=== PATIENT | male | born 1945 | race Caucasian/White ===

== ENCOUNTER 2017-03-14 15:53 | Inpatient (IN) | payer OTHER ==
[~2017-03-14] VITALS: Ht 170.2 cm; Wt 84.0 kg
[2017-03-14] MEDS ORDERED: ACET-1256 PO (16:21)
[2017-03-14] MEDS ORDERED: LSN20 PO (16:21)
[2017-03-14] MEDS ORDERED: IBUP-1050 PO (16:21)
[2017-03-14] MEDS ORDERED: HYDR25TA5 PO (16:21)
[2017-03-14] MEDS ORDERED: MELA3TAB PO (16:21)
[2017-03-14] MEDS ORDERED: LOVA20TA4 PO (16:21)
[2017-03-14] MEDS ORDERED: ASPI81TA28 PO (16:21)
--- NOTE | 2017-03-14 16:32 | DIAGNOSTIC IMAGING REPORT ---
SINGLE VIEW CHEST CLINICAL HISTORY: Generalized weakness. FINDINGS: An AP, portable, upright chest radiograph is obtained. No prior studies are available for comparison at the time of dictation. The examination is significantly degraded by portable technique, apical lordotic positioning, and patient rotation. The cardiomediastinal silhouette is unremarkable. There is atherosclerotic calcification of the thoracic ureter. Nonspecific interstitial thickening is noted. No airspace consolidation, large pleural effusion, or pneumothorax is seen. The skeletal structures are osteopenic. The bony thorax is grossly intact. Calcific tendinopathy is noted in the right shoulder. IMPRESSION: No acute cardiopulmonary abnormality. Electronically signed by: Guicho Lundy M.D. 03/14/2017 4:31 PM Dictated Date/Time: 03/14/2017 4:29 PM
[2017-03-14 16:51] LABS: BASO % 0.5 %; BASO ABS # 0.06 K/uL (0-0.2); COMPLETE YES; EOS % 0.8 %; HEMATOCRIT 37.8 % (42-52); IG% 0.5 %; LYMPH % 14.6 %; LYMPH ABS # 1.63 K/uL (1.2-3.4); MEAN CELL VOLUME 87.1 fL (80-100); MEAN CORPUSCULAR HEMOGLOBIN 30.2 pg (25-34); MEAN CORPUSCULAR HGB CONC 34.7 g/dl (32-36); MEAN PLATELET VOLUME 10.9 fL (7.4-10.4); MONO % 13.2 %; NEUT % 70.4 %; PLATELET COUNT 221 K/uL (130-400); RED BLOOD COUNT 4.34 M/uL (4.7-6.1); WHITE BLOOD COUNT 11.14 K/uL (4.8-10.8)
[2017-03-14 17:01] LABS: PARTIAL THROMBOPLASTIN RATIO 1.2; PROTHROMBIN TIME (PATIENT) 10.7 SECONDS (9.0-12.0)
[2017-03-14 17:05] LABS: URINE APPEARANCE CLEAR (CLEAR); URINE BILIRUBIN NEG (NEG); URINE COLOR DK YELLOW; URINE EPITHELIAL CELL AUTO >30 /lpf (0-5); URINE NITRITE NEG (NEG); URINE PH 5.5 (4.5-7.5); URINE SPECIFIC GRAVITY 1.025 (1.000-1.030); UROBILINOGEN NEG (NEG)
[2017-03-14 17:06] LABS: ALT/SGPT 64 U/L (12-78); AST/SGOT 28 U/L (15-37); BLOOD UREA NITROGEN 21 mg/dl (7-18); BUN/CREATININE RATIO 17.3 (10-20); CALCIUM 8.1 mg/dl (8.5-10.1); CARBON DIOXIDE 28 mmol/L (21-32); CHLORIDE 101 mmol/L (98-107); GLUCOSE 101 mg/dl (70-99); MAGNESIUM 2.2 mg/dl (1.8-2.4); POTASSIUM 3.9 mmol/L (3.5-5.1); SODIUM 137 mmol/L (136-145)
[2017-03-14 17:13] LABS: MANUAL MICROSCOPIC REQUIRED? NO; REVIEW REQ? YES
[2017-03-14 17:14] LABS: ALKALINE PHOSPHATASE 137 U/L (45-117); THYROID STIMULATING HORMONE 0.726 uIu/ml (0.300-4.500)
[2017-03-14] MEDS ORDERED: CEFTRIAXONE SOD INJ 1 GM ADDVIAL IV STA (18:14)
[2017-03-14] MEDS ORDERED: SODIUM CHLORIDE 0.9% 1000ML 1,000 ML IV STA (18:21)
[2017-03-14] MEDS ORDERED: ACETAMINOPHEN 500 MG TAB PO STA (18:21)
[2017-03-14] MEDS ORDERED: IBUPROFEN 600 MG TAB PO STA (19:36)
[2017-03-14] MEDS ORDERED: VANCOMYCIN INJ 1,700 MG in SODIUM CHLORIDE 0.9% 500ML 500 ML IV STA (19:36)
[2017-03-14] MEDS ORDERED: SODIUM CHLORIDE 0.9% 1000ML 2,000 ML IV STA (19:36)
[2017-03-14 21:50] VITALS: BP 126/75; PULSE 83; TEMP 36.8; O2SAT 93; Ht 170.2 cm; Wt 84.0 kg
[2017-03-14] MEDS: HYDROmorphone INJ 1 MG/ML SYR IV PRN (22:31)
[2017-03-14] MEDS: ENOXAPARIN 40 MG/0.4 ML SYR SQ SCH (23:06)
[2017-03-14 23:08] VITALS: BP 138/78; PULSE 87; TEMP 36.9; O2SAT 96
[2017-03-15] VITALS (7 sets, daily range): BP systolic 125–152; BP diastolic 68–79; PULSE 62–78; TEMP 37.1–38.6; O2SAT 92–95
--- NOTE | 2017-03-15 01:25 | EMERGENCY ROOM VISIT NOTE ---
History Report prepared by Marj: Lima Rose Under the Supervision of: Dr. Yovany Crespo M.D. First contact with patient: 16:06 Chief Complaint: FEVER Stated Complaint: FEVER / [facility] History of Present Illness The patient is a 71 year old male who presents to the Emergency Room with complaints of a constant fever beginning earlier today. The patient fell four days ago, which resulted in a left femoral neck fracture. He had surgery at [place] two days ago to repair this fracture. He was discharged to [facility] this morning. When he arrived his temperature was 103.3. The patient was given 500mg of Tylenol at 1:40pm. His fever persisted and he was sent to the ED for further evaluation. He also notes that he has been unable to void since his surgery. He has been getting catheterized regularly, but was not catheterized today. He reports some suprapubic discomfort. The patient rates his pain as a 5/ 10 in severity. Pt denies LOC, chills, diaphoresis, visual changes, neck pain, chest pain, breathing difficulties, nausea, vomiting back pain, melena, hematochezia, numbness, weakness, lymphadenopathy, rash, or other complaints. Source of History: patient Onset: today Position: head Symptom Intensity: 5/10 Quality: other (fever) Timing: constant Modifying Factors (Relieving): tylenol Associated Symptoms: + abdominal pain, + urinary symptoms (unable to void) Review of Systems See HPI for pertinent positives and negatives. A total of ten systems were reviewed and were otherwise negative. Past Medical & Surgical Medical Problems: (1) Femoral neck fracture (2) Sepsis Surgical Problems: (1) History of open reduction and internal fixation (ORIF) procedure Family History No pertinent history stated. Social History Smoking Status: Unknown if Ever Smoked Marital Status: Housing Status: lives with significant other Current/Historical Medications Scheduled Acetaminophen (Tylenol), 500 MG PO QAM Aspirin (Aspirin Ec), 81 MG PO QAM Hydrochlorothiazide (Hydrochlorothiazide), 2 MG PO DAILY Ibuprofen (Advil), 200 MG PO QPM Lisinopril (Lisinopril), 20 MG PO QAM Lovastatin (Mevacor), 20 MG PO QPM Melatonin (Melatonin), 3 MG PO HS Allergies Coded Allergies: No Known Allergies (Unverified , 03/14/17) Physical Exam Vital Signs Date Time Temp Pulse Resp B/P (MAP) Pulse Ox O2 Delivery O2 Flow Rate FiO2 03/14/17 20:42 37.3 83 17 128/67 95 Nasal Cannula 2.0 03/14/17 19:18 39.1 97 19 149/77 95 Nasal Cannula 2.0 03/14/17 18:06 38.0 92 20 145/80 93 Nasal Cannula 03/14/17 17:01 94 Nasal Cannula 2.0 03/14/17 16:59 89 20 128/72 89 Room Air 03/14/17 16:04 90 03/14/17 16:00 37.7 91 20 106/68 90 Room Air Physical Exam GENERAL: Awake, alert, uncomfortable-appearing, in no distress HENT: Normocephalic, atraumatic. Oropharynx unremarkable. EYES: Normal conjunctiva. Sclera non-icteric. NECK: Supple. No nuchal rigidity. FROM. No JVD. RESPIRATORY: Clear to auscultation. CARDIAC: Borderline tachycardic rate, normal rhythm. Extremities warm and well perfused. Pulses equal. ABDOMEN: Soft, non-distended. Minimal suprapubic discomfort. No rebound or guarding. No masses. RECTAL: Deferred. MUSCULOSKELETAL: Chest examination reveals no tenderness. The back is symmetrical on inspection without obvious abnormality. There is no CVA tenderness to palpation. No joint edema. LOWER EXTREMITIES: Surgical incision left proximal thigh, clean, dry, and intact. No redness. Calves are equal size bilaterally and non-tender. No edema. No discoloration. NEURO: Normal sensorium. No sensory or motor deficits noted. SKIN: No rash or jaundice noted. Medical Decision & Procedures ER Provider Diagnostic Interpretation: Chest x-ray. Findings: A chest x-ray was performed and revealed no pneumothorax , effusion, infiltrate, pulmonary edema, free air under the diaphragm, or wide mediastinum. Radiology results as stated below per my review and radiologist interpretation: SINGLE VIEW CHEST CLINICAL HISTORY: Generalized weakness. FINDINGS: An AP, portable, upright chest radiograph is obtained. No prior studies are available for comparison at the time of dictation. The examination is significantly degraded by portable technique, apical lordotic positioning, and patient rotation. The cardiomediastinal silhouette is unremarkable. There is atherosclerotic calcification of the thoracic ureter. Nonspecific interstitial thickening is noted. No airspace consolidation, large pleural effusion, or pneumothorax is seen. The skeletal structures are osteopenic. The bony thorax is grossly intact. Calcific tendinopathy is noted in the right shoulder. IMPRESSION: No acute cardiopulmonary abnormality. Electronically signed by: Guicho Lundy M.D. 03/14/2017 4:31 PM Dictated Date/Time: 03/14/2017 4:29 PM Laboratory Results 03/14/17 16:30 Red Blood Count 4.34, Mean Corpuscular Volume 87.1, Mean Corpuscular Hemoglobin 30.2, Mean Corpuscular Hemoglobin Concent 34.7, Mean Platelet Volume 10.9, Neutrophils (%) (Auto) 70.4, Lymphocytes (%) (Auto) 14.6, Monocytes (%) (Auto) 13.2, Eosinophils (%) (Auto) 0.8, Basophils (%) (Auto) 0.5, Neutrophils # (Auto ) 7.83, Lymphocytes # (Auto) 1.63, Monocytes # (Auto) 1.47, Eosinophils # (Auto ) 0.09, Basophils # (Auto) 0.06 03/14/17 16:30 Test 03/14/17 16:30 03/14/17 16:35 03/14/17 16:42 White Blood Count 11.14 K/uL (4.8-10.8) Red Blood Count 4.34 M/uL (4.7-6.1) Hemoglobin 13.1 g/dL (14.0-18.0) Hematocrit 37.8 % (42-52) Mean Corpuscular Volume 87.1 fL (80-100) Mean Corpuscular Hemoglobin 30.2 pg (25-34) Mean Corpuscular Hemoglobin Concent 34.7 g/dl (32-36) Platelet Count 221 K/uL (130-400) Mean Platelet Volume 10.9 fL (7.4-10.4) Neutrophils (%) (Auto) 70.4 % Lymphocytes (%) (Auto) 14.6 % Monocytes (%) (Auto) 13.2 % Eosinophils (%) (Auto) 0.8 % Basophils (%) (Auto) 0.5 % Neutrophils # (Auto) 7.83 K/uL (1.4-6.5) Lymphocytes # (Auto) 1.63 K/uL (1.2-3.4) Monocytes # (Auto) 1.47 K/uL (0.11-0.59) Eosinophils # (Auto) 0.09 K/uL (0-0.5) Basophils # (Auto) 0.06 K/uL (0-0.2) RDW Standard Deviation 42.8 fL (36.4-46.3) RDW Coefficient of Variation 13.3 % (11.5-14.5) Immature Granulocyte % (Auto) 0.5 % Immature Granulocyte # (Auto) 0.06 K/uL (0.00-0.02) Prothrombin Time 10.7 SECONDS (9.0-12.0) Prothromb Time International Ratio 1.0 (0.9-1.1) Activated Partial Thromboplast Time 30.8 SECONDS (21.0-31.0) Partial Thromboplastin Ratio 1.2 Anion Gap 8.0 mmol/L (3-11) Est Creatinine Clear Calc Drug Dose 60.2 ml/min Estimated GFR () 71.1 Estimated GFR (Non- 61.3 BUN/Creatinine Ratio 17.3 (10-20) Calcium Level 8.1 mg/dl (8.5-10.1) Magnesium Level 2.2 mg/dl (1.8-2.4) Total Bilirubin 1.0 mg/dl (0.2-1) Direct Bilirubin 0.4 mg/dl (0-0.2) Aspartate Amino Transf (AST/SGOT) 28 U/L (15-37) Alanine Aminotransferase (ALT/SGPT) 64 U/L (12-78) Alkaline Phosphatase 137 U/L (45-117) Total Creatine Kinase 149 U/L (39-308) Creatine Kinase MB < 0.5 ng/ml (0.5-3.6) Creatine Kinase MB Ratio (0-3.0) Troponin I < 0.015 ng/ml (0-0.045) Total Protein 7.2 gm/dl (6.4-8.2) Albumin 2.7 gm/dl (3.4-5.0) Lipase 105 U/L (73-393) Thyroid Stimulating Hormone (TSH) 0.726 uIu/ml (0.300-4.500) Urine Color DK YELLOW Urine Appearance CLEAR (CLEAR) Urine pH 5.5 (4.5-7.5) Urine Specific [place] 1.025 (1.000-1.030) Urine Protein 1+ (NEG) Urine Glucose (UA) NEG (NEG) Urine Ketones NEG (NEG) Urine Occult Blood 1+ (NEG) Urine Nitrite NEG (NEG) Urine Bilirubin NEG (NEG) Urine Urobilinogen NEG (NEG) Urine Leukocyte Esterase SMALL (NEG) Urine WBC (Auto) 10-30 /hpf (0-5) Urine RBC (Auto) 10-30 /hpf (0-4) Urine Hyaline Casts (Auto) /lpf (0-5) Urine Epithelial Cells (Auto) >30 /lpf (0-5) Urine Bacteria (Auto) NEG (NEG) Urine Renal Epithelial Cells /lpf (0-5) Urine Pathogenic Casts /lpf (0) Bedside Lactic Acid Venous 0.92 mmol/L (0.90-1.70) Laboratory results reviewed by me. Medications Administered Medications (Trade) Dose Ordered Sig/Olinda Route Start Time Stop Time Status Last Admin Dose Admin Ceftriaxone Sodium (Rocephin Inj) 1 gm NOW STAT IV 03/14/17 18:14 03/14/17 18:15 DC 03/14/17 18:28 1 GM Acetaminophen (Tylenol Tab) 1,000 mg NOW STAT PO 03/14/17 18:21 03/14/17 18:23 DC 03/14/17 18:30 1,000 MG Sodium Chloride 1,000 ml @ 999 mls/hr Q1H1M STAT IV 03/14/17 18:21 03/14/17 19:21 DC 03/14/17 18:27 999 MLS/HR Ibuprofen (Motrin Tab) 600 mg NOW STAT PO 03/14/17 19:36 03/14/17 19:38 DC 03/14/17 20:42 600 MG Vancomycin HCl 1700 mg/Sodium Chloride 534 ml @ 200 mls/hr ONE STAT IV 03/14/17 19:36 03/14/17 22:16 DC 03/14/17 20:42 200 MLS/HR Sodium Chloride 2,000 ml @ 999 mls/hr Q2H1M STAT IV 03/14/17 19:36 03/14/17 21:36 DC 03/14/17 20:42 999 MLS/HR ECG Indication: other Rate (beats per minute): 92 Rhythm: normal sinus Findings: no acute ischemic change, no ectopy ED Course 1623: The patient was evaluated in room C6. A complete history and physical exam was performed. 1813: Rocephin 1 gm IV 1820: NSS 1000 ml @ 999 mls/hr IV, Tylenol tab 1000 mg PO 1833: I reevaluated the patient. He is feeling slightly chilled and just received his medications. 1935: NSS 2000 ml @ 999 mls/hr IV, Vancomycin HCl 1700 mg/Sodium chloride 534 ml @ 200 mls/hr IV, ibuprofen 600 mg PO 1938: I reassessed the patient at this time. He is feeling warm and flushed. I discussed the results and treatment plan with the patient. I answered all pertaining questions that he had. He expressed understanding and verbalized agreement. 1946: I spoke with Dr. Vickers. We discussed the patient's results and treatment plan. [facility]. Medical Decision Medication Reconciliation: I attest that I have personally reviewed the patient' s current medication list Blood pressure screening: Patient was found to have normal blood pressure on screening and does not require emergent follow-up. Triage Nursing notes reviewed. The patient's presentation and history were concerning for fever and recent surgery. The patient was evaluated. Clinically he was too relatively well. He was having issues with urinary retention. Burciaga catheter was placed and urine was obtained. His CBC showed a mild leukocytosis. Chemistry panel was unremarkable. Chest x-ray did not reveal any evidence of pneumonia. The patient was hydrated. He is given IV Rocephin. The patient then had an increase in fever and felt chills. He was given Tylenol. The patient was observed. He began to feel worse and his temperature increased over 39C. He was given a dose of Motrin, additional 2 L of IV fluids, and IV vancomycin for additional gram-positive coverage. Given his recent history of multiple catheterizations I'm concerned about a urinary source for his infection. His urinalysis did show a significant amount of white blood cells and this was a catheter specimen. The patient will need to be monitored in the hospital as she is exhibiting signs of SIRS and is at high risk for sepsis. Consultation was made with internal medicine. The patient and family were informed. The patient was evaluated by medicine in the emergency from for further management. Consults Time Called: 1945 Consulting Physician: Dr. Vickers Returned Call: [address] Vickers. We discussed the patient's results and treatment plan. The patient will be evaluated by the [facility] for further management. Impression Primary Impression: Fever Additional Impressions: SIRS (systemic inflammatory response syndrome) UTI (urinary tract infection) Scribe Attestation The scribe's documentation has been prepared under my direction and personally reviewed by me in its entirety. I confirm that the note above accurately reflects all work, treatment, procedures, and medical decision making performed by me. Departure Information Dispostion Being Evaluated By Hospitalist Referrals [facility] (PCP) Patient Instructions My [facility] Problem Qualifiers Primary Impression: Fever Fever type: unspecified Qualified Codes: R50.9 - Fever, unspecified Additional Impressions: UTI (urinary tract infection) Urinary tract infection type: site unspecified Hematuria presence: with hematuria Qualified Codes: N39.0 - Urinary tract infection, site not specified ; R31.9 - Hematuria, unspecified
--- NOTE | 2017-03-15 01:31 | HISTORY & PHYSICAL EXAMINATION ---
DATE OF ADMISSION: 03/14/2017 PRIMARY CARE DOCTOR: Dr. Regalado CHIEF COMPLAINT: Fever. HISTORY OF PRESENT ILLNESS: History obtained from patient and records. Medical history significant for CVA, LA as per records (px unaware of dx), hypertension, hyperlipidemia, BPH, ongoing tobacco abuse (chewing). Patient confined at [facility] from March 11 till this AM for L femoral fracture after a fall while looking for worms. PX underwent surgery. No unusual pain. Postop urinary retention required intermittent straight catheterization, postop low grade fevers as per records. Cultures negative, antibiotics later stopped. Px discharged today to [facility]. At [facility], noted to be febrile and urinary retention noted. No cp, no sob, no cough sx, No abd pain/diarrhea. No headaches. No unusual L hip pain. MEDICAL HISTORY: As above. Seen by [facility], May 2015 for urinary retention after vertebral fracture. Patient subsequently weaned off Flomax. SURGERIES: Cystoscopy for kidney stones, orthopedic procedures.cataract surgery. HOME MEDICATIONS: Include acetaminophen, HCTZ, ibuprofen, melatonin, aspirin, lisinopril, losartan. ALLERGIES : NKA FAMILY HISTORY: Family history of heart disease. PERSONAL AND SOCIAL HISTORY: Ongoing tobacco abuse (chewing). No chronic intake of alcoholic beverages. REVIEW OF SYSTEMS: As per HPI. All other ROS negative. PHYSICAL EXAMINATION: VITAL SIGNS: Blood pressure was noted to be 106/98, pulse rate 92, respiratory rate 20, temperature 39.1, sats 98 on room air. GENERAL: Noted to be slightly anxious, uncomfortable, no respiratory distress. SKIN: Pallor. HEENT: Pale palpebral conjunctivae. Dry mucosa. NECK: No JVD. supple CHEST: Clear to auscultation. HEART: Regular rate and rhythm. ABDOMEN: Soft. EXTREMITIES: No edema. no tenderness NEUROLOGIC: No gross focality. LABORATORY DATA: Hemoglobin was noted to be 13.1, white cell count 11 platelets 221. Sodium 140 chloride 101, CO2 28, creatinine 1.2, glucose 101, lactic acid was 0.92. UA, small WBC est CXR no acute pathology ASSESSMENT: 1. Sepsis secondary to complicated urinary tract infection history of benign prostatic hypertrophy (Hx pansensitive E. coli as per outpx records) 2. recent hx traumatic L femoral fx sp surgery 3. cerebrovascular accident as per records 4. hypertension, stable. 5. postop anemia, PLAN: GMF Follow cultures. IV ceftriaxone for now. Urology consult RE urinary retention DVT prophylaxis. Lovenox subQ. Full code. MTDD
[2017-03-15] MEDS: HYDROmorphone INJ 1 MG/ML SYR IV PRN (04:57)
[2017-03-15 07:14] LABS: BASO % 0.5 %; BASO ABS # 0.05 K/uL (0-0.2); COMPLETE YES; EOS % 1.2 %; HEMATOCRIT 36.1 % (42-52); IG% 0.4 %; LYMPH % 15.9 %; MEAN CORPUSCULAR HEMOGLOBIN 29.8 pg (25-34); MEAN CORPUSCULAR HGB CONC 33.8 g/dl (32-36); MEAN PLATELET VOLUME 10.4 fL (7.4-10.4); MONO % 14.5 %; NEUT % 67.5 %; PLATELET COUNT 189 K/uL (130-400); WHITE BLOOD COUNT 9.45 K/uL (4.8-10.8)
[2017-03-15 07:42] LABS: BUN/CREATININE RATIO 19.9 (10-20); CALCIUM 7.5 mg/dl (8.5-10.1); CREATININE 0.96 mg/dl (0.60-1.40)
[2017-03-15] MEDS: ACETAMINOPHEN 325 MG TAB PO PRN ×2 (08:00→15:43)
[2017-03-15] MEDS: ONDANSETRON INJ 2 MG/ML 2 ML VIAL IV PRN ×2 (08:00→16:56)
[2017-03-15] MEDS ORDERED: PNEUMOCOCCAL ADMINISTRATION CHARGE ONE (09:00)
[2017-03-15] MEDS ORDERED: PNEUMOCOCCAL POLYSACCHARIDES 25 MCG/0.5 ML VIAL/SYR IM. ONE (09:00)
[2017-03-15] MEDS: LISINOPRIL 20 MG TAB PO SCH (09:50)
[2017-03-15] MEDS: ASPIRIN 81 MG ECTAB PO SCH (09:50)
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
[2017-03-15] MEDS: CEFTRIAXONE SOD INJ 1 GM in DEXTROSE 5% ADD-VANTAGE 50ML 50 ML IV SCH (17:54)
--- NOTE | 2017-03-15 20:27 | Progress Note ---
Medicine Progress Note Date & Time of Visit: Mar 15, 2017 at 10:40 . Subjective Repair of left hip fracture performed at [facility] last week. Transferred to [facility] for rehabilitation. Evaluated in ED for fever and admitted last night. Still febrile this morning. No cough or shortness of breath. No chest pain. No nausea, vomiting, diarrhea. Has Burciaga catheter. No drainage from left hip. . Objective Last 8 Hrs Date Time Temp Pulse Resp B/P (MAP) Pulse Ox O2 Delivery O2 Flow Rate FiO2 03/15/17 16:54 38.5 03/15/17 15:31 Room Air 03/15/17 15:05 38.6 78 16 130/69 (89) 92 Room Air Physical Exam: General- sitting in chair, no distress Eyes- anicteric Lungs- clear to auscultation Heart- RRR Abdomen- + BS, soft, nontender - Burciaga catheter draining clear urine Extremities- no pretibial edema or calf tenderness; left hip incision without erythema or drainage Neuro- alert, oriented . Laboratory Results: Last 24 Hours Test 03/15/17 06:28 White Blood Count 9.45 K/uL Red Blood Count 4.10 M/uL Hemoglobin 12.2 g/dL Hematocrit 36.1 % Mean Corpuscular Volume 88.0 fL Mean Corpuscular Hemoglobin 29.8 pg Mean Corpuscular Hemoglobin Concent 33.8 g/dl Platelet Count 189 K/uL Mean Platelet Volume 10.4 fL Neutrophils (%) (Auto) 67.5 % Lymphocytes (%) (Auto) 15.9 % Monocytes (%) (Auto) 14.5 % Eosinophils (%) (Auto) 1.2 % Basophils (%) (Auto) 0.5 % Neutrophils # (Auto) 6.38 K/uL Lymphocytes # (Auto) 1.50 K/uL Monocytes # (Auto) 1.37 K/uL Eosinophils # (Auto) 0.11 K/uL Basophils # (Auto) 0.05 K/uL RDW Standard Deviation 44.0 fL RDW Coefficient of Variation 13.6 % Immature Granulocyte % (Auto) 0.4 % Immature Granulocyte # (Auto) 0.04 K/uL Sodium Level 141 mmol/L Potassium Level 4.0 mmol/L Chloride Level 107 mmol/L Carbon Dioxide Level 26 mmol/L Anion Gap 8.0 mmol/L Blood Urea Nitrogen 19 mg/dl Creatinine 0.96 mg/dl Est Creatinine Clear Calc Drug Dose 75.3 ml/min Estimated GFR () 93.1 Estimated GFR (Non- 80.3 BUN/Creatinine Ratio 19.9 Random Glucose 87 mg/dl Calcium Level 7.5 mg/dl Hepatitis C Antibody Screen NEG Assessment & Plan FEVER Source uncertain. No infiltrates on chest x-ray. No apparent wound infection. Having problems with urinary retention- ? prostatitis. Urology consulted. Continue IV ceftriaxone. CORONARY ARTERY DISEASE No anginal symptoms. Continue aspirin. HYPERTENSION Continue hydrochlorothiazide, lisinopril, losartan. CEREBROVASCULAR DISEASE Old stroke with residual mild left upper extremity weakness. LEFT HIP FRACTURE / REPAIR Follow-up with Orthopedics and [place]. VTE PROPHYLAXIS Moderate to high risk. SQ enoxaparin. DISPOSITION Expected return to [facility] for inpatient rehabilitation. . Current Inpatient Medications: Current Inpatient Medications Medications (Trade) Dose Ordered Sig/Olinda Route Start Time Stop Time Status Last Admin Dose Admin Enoxaparin Sodium (Lovenox Inj) 40 mg Q24H SQ 03/14/17 22:00 04/13/17 21:59 03/14/17 23:06 40 MG Acetaminophen (Tylenol Tab) 650 mg Q4H PRN PO 03/14/17 21:30 04/13/17 21:29 03/15/17 15:43 650 MG Ceftriaxone Sodium 1 gm/ Dextrose 50 ml @ 100 mls/hr Q24H IV 03/15/17 18:00 03/18/17 18:29 03/15/17 17:54 100 MLS/HR Aspirin (Ecotrin Tab) 81 mg QAM PO 03/15/17 09:00 04/14/17 08:59 03/15/17 09:50 81 MG Lisinopril (Zestril Tab) 20 mg QAM PO 03/15/17 09:00 04/14/17 08:59 03/15/17 09:50 20 MG Lovastatin (Mevacor Tab) 20 mg QPM PO 03/15/17 21:00 04/14/17 20:59 Ondansetron HCl (Zofran Inj) 4 mg Q6H PRN IV 03/14/17 21:30 04/13/17 21:29 03/15/17 16:56 4 MG Tramadol HCl (Ultram Tab) 25 mg Q6H PRN PO 03/14/17 21:30 04/13/17 21:29 Hydromorphone HCl (Dilaudid Inj) 0.5 mg Q3H PRN IV 03/14/17 21:30 03/28/17 21:29 03/15/17 04:57 0.5 MG Tamsulosin HCl (Flomax Cap) 0.4 mg HS PO 03/15/17 21:00 04/14/17 20:59
[2017-03-15] MEDS ORDERED: LORAZEPAM 0.5 MG TAB PO ONE (20:45)
[2017-03-15] MEDS: ENOXAPARIN 40 MG/0.4 ML SYR SQ SCH (21:20)
[2017-03-15] MEDS: TAMSULOSIN HCL 0.4 MG CAP PO SCH (21:20)
[2017-03-15] MEDS: LOVASTATIN 20 MG TAB PO SCH (21:20)
[2017-03-16 03:19] VITALS: TEMP 37.2
[2017-03-16 07:12] VITALS: BP 129/70; PULSE 61; TEMP 37.1; O2SAT 97
[2017-03-16] MEDS: TRAMADOL HCL 50 MG TAB PO PRN ×2 (07:31→22:19)
[2017-03-16] MEDS: ASPIRIN 81 MG ECTAB PO SCH (08:30)
[2017-03-16] MEDS: LISINOPRIL 20 MG TAB PO SCH (08:30)
[2017-03-16 15:00] VITALS: BP 113/67; PULSE 63; TEMP 37; O2SAT 95
[2017-03-16] MEDS: CEFTRIAXONE SOD INJ 1 GM in DEXTROSE 5% ADD-VANTAGE 50ML 50 ML IV SCH (17:45)
[2017-03-16 19:15] VITALS: TEMP 37.4
--- NOTE | 2017-03-16 20:47 | DIAGNOSTIC IMAGING REPORT ---
CHEST 2 VIEWS ROUTINE CLINICAL HISTORY: fever, cough fever COMPARISON STUDY: 03/14/2017 FINDINGS: Mild emphysematous change. Mild stable cardiomegaly. Lungs are considered clear. Trace pleural fluid left base laterally. IMPRESSION: Trace pleural fluid left base. Mild to moderate emphysematous change. Electronically signed by: Brian Hernandez M.D. 03/16/2017 8:46 PM Dictated Date/Time: 03/16/2017 8:45 PM
--- NOTE | 2017-03-16 21:07 | DIAGNOSTIC IMAGING REPORT ---
SINUSES MIN 3 VIEWS ROUTINE CLINICAL HISTORY: fever, cough COMPARISON STUDY: None FINDINGS: All major sinuses are considered clear. There are no air-fluid levels. Osseous structures appear intact. IMPRESSION: All major sinuses are clear Electronically signed by: Brian Hernandez M.D. 03/16/2017 9:06 PM Dictated Date/Time: 03/16/2017 9:05 PM
[2017-03-16] MEDS: ENOXAPARIN 40 MG/0.4 ML SYR SQ SCH (21:15)
[2017-03-16] MEDS: TAMSULOSIN HCL 0.4 MG CAP PO SCH (21:15)
[2017-03-16] MEDS: LOVASTATIN 20 MG TAB PO SCH (21:15)
[2017-03-16 23:05] VITALS: BP 117/71; PULSE 60; TEMP 36.6; O2SAT 94
--- NOTE | 2017-03-16 23:09 | Progress Note ---
Medicine Progress Note Date & Time of Visit: Mar 16, 2017 at 16:00 . Subjective Last fever was yesterday afternoon around 1700. Occasional cough productive of green sputum. No shortness of breath. No chest pain. No nausea, vomiting, diarrhea. Objective Last 8 Hrs Date Time Temp Pulse Resp B/P (MAP) Pulse Ox O2 Delivery O2 Flow Rate FiO2 03/16/17 19:30 Room Air 03/16/17 19:15 37.4 Physical Exam: General- lying in bed, no distress Lungs- clear to auscultation Heart- RRR Abdomen- + BS, soft, nontender - Burciaga catheter draining clear urine Extremities- no pretibial edema or calf tenderness; left hip incision bandaged Neuro- alert, oriented . Assessment & Plan FEVER Source uncertain. No infiltrates on admission chest x-ray. No apparent wound infection. Having problems with urinary retention- ? prostatitis. Productive cough today- check follow-up chest x-ray with PA and lateral views as well as sinus films. Continue IV ceftriaxone. URINARY RETENTION Postoperative urinary retention. Seen in consultation by Urology. Prescribed tamsulosin. Burciaga catheter for a few more days followed by voiding trial recommended. CORONARY ARTERY DISEASE No anginal symptoms. Continue aspirin. HYPERTENSION Continue hydrochlorothiazide, lisinopril, losartan. CEREBROVASCULAR DISEASE Old stroke with residual mild left upper extremity weakness. LEFT HIP FRACTURE / REPAIR Follow-up with Orthopedics in [place]. VTE PROPHYLAXIS Moderate to high risk. SQ enoxaparin. DISPOSITION Expected return to [facility] for inpatient rehabilitation. . Consultants: Urology . Current Inpatient Medications: Current Inpatient Medications Medications (Trade) Dose Ordered Sig/[facility] Route Start Time Stop Time Status Last Admin Dose Admin Enoxaparin Sodium (Lovenox Inj) 40 mg Q24H SQ 03/14/17 22:00 04/13/17 21:59 03/16/17 21:15 40 MG Acetaminophen (Tylenol Tab) 650 mg Q4H PRN PO 03/14/17 21:30 04/13/17 21:29 03/15/17 15:43 650 MG Ceftriaxone Sodium 1 gm/ Dextrose 50 ml @ 100 mls/hr Q24H IV 03/15/17 18:00 03/18/17 18:29 03/16/17 17:45 100 MLS/HR Aspirin (Ecotrin Tab) 81 mg QAM PO 03/15/17 09:00 04/14/17 08:59 03/16/17 08:30 81 MG Lisinopril (Zestril Tab) 20 mg QAM PO 03/15/17 09:00 04/14/17 08:59 03/16/17 08:30 20 MG Lovastatin (Mevacor Tab) 20 mg QPM PO 03/15/17 21:00 04/14/17 20:59 03/16/17 21:15 20 MG Ondansetron HCl (Zofran Inj) 4 mg Q6H PRN IV 03/14/17 21:30 04/13/17 21:29 03/15/17 16:56 4 MG Tramadol HCl (Ultram Tab) 25 mg Q6H PRN PO 03/14/17 21:30 04/13/17 21:29 03/16/17 22:19 25 MG Hydromorphone HCl (Dilaudid Inj) 0.5 mg Q3H PRN IV 03/14/17 21:30 03/28/17 21:29 03/15/17 04:57 0.5 MG Tamsulosin HCl (Flomax Cap) 0.4 mg HS PO 03/15/17 21:00 04/14/17 20:59 03/16/17 21:15 0.4 MG
[2017-03-17 07:54] VITALS: BP 142/88; PULSE 60; TEMP 33.7; TEMP 37.3; O2SAT 96
[2017-03-17] MEDS: ASPIRIN 81 MG ECTAB PO SCH (08:33)
[2017-03-17] MEDS: ACETAMINOPHEN 325 MG TAB PO PRN (08:34)
[2017-03-17] MEDS: LISINOPRIL 20 MG TAB PO SCH (08:34)
[2017-03-17 09:53] LABS: HEMATOCRIT 37.1 % (42-52); MEAN CELL VOLUME 86.3 fL (80-100); MEAN CORPUSCULAR HEMOGLOBIN 28.8 pg (25-34); MEAN CORPUSCULAR HGB CONC 33.4 g/dl (32-36); MEAN PLATELET VOLUME 11.3 fL (7.4-10.4); PLATELET COUNT 214 K/uL (130-400); WHITE BLOOD COUNT 7.32 K/uL (4.8-10.8)
[2017-03-17 10:24] LABS: BUN/CREATININE RATIO 20.6 (10-20); CREATININE 0.97 mg/dl (0.60-1.40); POTASSIUM 3.6 mmol/L (3.5-5.1)
[2017-03-17 10:26] LABS: CALCIUM 8.2 mg/dl (8.5-10.1)
--- NOTE | 2017-03-17 14:01 | Progress Note ---
Medicine Progress Note Date & Time of Visit: Mar 17, 2017 at 13:45. Subjective Pt was seen and examined Lying in bed with no distress Pt said that is still having pain in Left LE He said that he feels like the pain med does not last longer denies any chest pain, palpitation, dizziness and sob Objective Last 8 Hrs Date Time Temp Pulse Resp B/P (MAP) Pulse Ox O2 Delivery O2 Flow Rate FiO2 03/17/17 08:56 Room Air 96 03/17/17 08:00 Room Air 03/17/17 07:54 37.3 60 14 142/88 (106) 96 Room Air Physical Exam: General- No acute distress Head- atraumatic Eyes- PERRL, EOMI ENT- oropharynx clear Neck- supple, no JVD Lungs- clear to auscultation Heart- regular rhythm Abdomen- normal bowel sounds, soft Extremities- no calf tenderness Neuro- alert, oriented x 3; PERRL, EOMI; no facial palsy Skin- warm & dry Laboratory Results: Last 24 Hours Test 03/17/17 09:27 White Blood Count 7.32 K/uL Red Blood Count 4.30 M/uL Hemoglobin 12.4 g/dL Hematocrit 37.1 % Mean Corpuscular Volume 86.3 fL Mean Corpuscular Hemoglobin 28.8 pg Mean Corpuscular Hemoglobin Concent 33.4 g/dl RDW Standard Deviation 42.7 fL RDW Coefficient of Variation 13.5 % Platelet Count 214 K/uL Mean Platelet Volume 11.3 fL Sodium Level 140 mmol/L Potassium Level 3.6 mmol/L Chloride Level 106 mmol/L Carbon Dioxide Level 24 mmol/L Anion Gap 10.0 mmol/L Blood Urea Nitrogen 20 mg/dl Creatinine 0.97 mg/dl Est Creatinine Clear Calc Drug Dose 74.5 ml/min Estimated GFR () 91.9 Estimated GFR (Non- 79.3 BUN/Creatinine Ratio 20.6 Random Glucose 140 mg/dl Calcium Level 8.2 mg/dl Assessment & Plan FEVER Etiology Unknown No infiltrates on admission chest x-ray. No apparent wound infection. Blood cx and urine cx negative Received rocephin has been afebrile for about 48hrs URINARY RETENTION Postoperative urinary retention.. Urology on board Recommended to keep Burciaga catheter for a few more days followed by voiding trial on Urine cx negative continue Flomax CORONARY ARTERY DISEASE Asymptomatic Continue aspirin. HYPERTENSION Continue hydrochlorothiazide, lisinopril, losartan. BP stable CEREBROVASCULAR DISEASE Old stroke with residual mild left upper extremity weakness. Continue aspirin LEFT HIP FRACTURE / REPAIR Follow-up with Orthopedics in [place]. Continue PT VTE PROPHYLAXIS Moderate to high risk. SQ enoxaparin. DIS[facility]ITION [facility] Consultants: Urology . Current Inpatient Medications: Current Inpatient Medications Medications (Trade) Dose Ordered Sig/Olinda Route Start Time Stop Time Status Last Admin Dose Admin Enoxaparin Sodium (Lovenox Inj) 40 mg Q24H SQ 03/14/17 22:00 04/13/17 21:59 03/16/17 21:15 40 MG Acetaminophen (Tylenol Tab) 650 mg Q4H PRN PO 03/14/17 21:30 04/13/17 21:29 03/17/17 08:34 650 MG Ceftriaxone Sodium 1 gm/ Dextrose 50 ml @ 100 mls/hr Q24H IV 03/15/17 18:00 03/18/17 18:29 03/16/17 17:45 100 MLS/HR Aspirin (Ecotrin Tab) 81 mg QAM PO 03/15/17 09:00 04/14/17 08:59 03/17/17 08:33 81 MG Lisinopril (Zestril Tab) 20 mg QAM PO 03/15/17 09:00 04/14/17 08:59 03/17/17 08:34 20 MG Lovastatin (Mevacor Tab) 20 mg QPM PO 03/15/17 21:00 04/14/17 20:59 03/16/17 21:15 20 MG Ondansetron HCl (Zofran Inj) 4 mg Q6H PRN IV 03/14/17 21:30 04/13/17 21:29 03/15/17 16:56 4 MG Tramadol HCl (Ultram Tab) 25 mg Q6H PRN PO 03/14/17 21:30 04/13/17 21:29 03/16/17 22:19 25 MG Hydromorphone HCl (Dilaudid Inj) 0.5 mg Q3H PRN IV 03/14/17 21:30 03/28/17 21:29 03/15/17 04:57 0.5 MG Tamsulosin HCl (Flomax Cap) 0.4 mg HS PO 03/15/17 21:00 04/14/17 20:59 03/16/17 21:15 0.4 MG
[2017-03-17 15:40] VITALS: BP 118/79; PULSE 71; TEMP 36.8; O2SAT 94
[2017-03-17] MEDS: CEFTRIAXONE SOD INJ 1 GM in DEXTROSE 5% ADD-VANTAGE 50ML 50 ML IV SCH (18:04)
[2017-03-17] MEDS: TAMSULOSIN HCL 0.4 MG CAP PO SCH (20:54)
[2017-03-17] MEDS: LOVASTATIN 20 MG TAB PO SCH (20:54)
[2017-03-17] MEDS: ENOXAPARIN 40 MG/0.4 ML SYR SQ SCH (21:46)
[2017-03-17 22:54] VITALS: BP 132/75; PULSE 66; TEMP 36.8; O2SAT 95
[2017-03-18] MEDS ORDERED: ROPINIROLE HCL 1 MG TAB PO ONE (00:30)
[2017-03-18 06:35] VITALS: BP 146/82; PULSE 62; TEMP 36.5; O2SAT 94
[2017-03-18 07:46] VITALS: BP 140/80; PULSE 64; TEMP 36.6; O2SAT 96
[2017-03-18 07:57] LABS: BASO % 1.2 %; BASO ABS # 0.11 K/uL (0-0.2); COMPLETE YES; EOS % 3.5 %; HEMATOCRIT 37.6 % (42-52); IG% 0.3 %; LYMPH % 36.7 %; LYMPH ABS # 3.35 K/uL (1.2-3.4); MEAN CELL VOLUME 85.5 fL (80-100); MEAN CORPUSCULAR HEMOGLOBIN 29.5 pg (25-34); MEAN CORPUSCULAR HGB CONC 34.6 g/dl (32-36); MEAN PLATELET VOLUME 11.2 fL (7.4-10.4); NEUT % 48.3 %; PLATELET COUNT 270 K/uL (130-400); WHITE BLOOD COUNT 9.13 K/uL (4.8-10.8)
[2017-03-18] MEDS: LISINOPRIL 20 MG TAB PO SCH (09:00)
[2017-03-18] MEDS: ASPIRIN 81 MG ECTAB PO SCH (09:00)
[2017-03-18 09:48] VITALS: O2SAT 95
--- NOTE | 2017-03-18 11:04 | Progress Note ---
Medicine Progress Note Date & Time of Visit: Mar 18, 2017 at 10:54. Subjective Pt was seen and examined Lying in bed with no distress Pt said that he was having some pain last night that kept him up denies any chest pain, palpitation, dizziness, urinary symptoms and fever Objective Last 8 Hrs Date Time Temp Pulse Resp B/P (MAP) Pulse Ox O2 Delivery O2 Flow Rate FiO2 03/18/17 09:48 95 Room Air 03/18/17 07:46 36.6 64 14 140/80 (100) 96 Room Air 03/18/17 06:35 36.5 62 16 146/82 (103) 94 Room Air Physical Exam: General- No acute distress, afebrile Head- atraumatic Eyes- PERRL, EOMI ENT- oropharynx clear Neck- supple, no JVD Lungs- clear to auscultation Heart- regular rhythm Abdomen- normal bowel sounds, soft Extremities- no calf tenderness Neuro- alert, oriented x 3; PERRL, EOMI; no facial palsy Skin- warm & dry Laboratory Results: Last 24 Hours Test 03/18/17 07:35 White Blood Count 9.13 K/uL Red Blood Count 4.40 M/uL Hemoglobin 13.0 g/dL Hematocrit 37.6 % Mean Corpuscular Volume 85.5 fL Mean Corpuscular Hemoglobin 29.5 pg Mean Corpuscular Hemoglobin Concent 34.6 g/dl Platelet Count 270 K/uL Mean Platelet Volume 11.2 fL Neutrophils (%) (Auto) 48.3 % Lymphocytes (%) (Auto) 36.7 % Monocytes (%) (Auto) 10.0 % Eosinophils (%) (Auto) 3.5 % Basophils (%) (Auto) 1.2 % Neutrophils # (Auto) 4.41 K/uL Lymphocytes # (Auto) 3.35 K/uL Monocytes # (Auto) 0.91 K/uL Eosinophils # (Auto) 0.32 K/uL Basophils # (Auto) 0.11 K/uL RDW Standard Deviation 41.5 fL RDW Coefficient of Variation 13.3 % Immature Granulocyte % (Auto) 0.3 % Immature Granulocyte # (Auto) 0.03 K/uL Assessment & Plan FEVER Etiology Unknown No infiltrates on admission chest x-ray. No apparent wound infection. Blood cx and urine cx negative Received rocephin for 4 days has been afebrile for about 3 days Stable URINARY RETENTION Postoperative urinary retention.. Urology on board Recommended to keep Burciaga catheter for a few more days followed by voiding trial on Urine cx negative continue Flomax CORONARY ARTERY DISEASE Asymptomatic Continue aspirin. HYPERTENSION Continue hydrochlorothiazide, lisinopril, losartan. BP stable CEREBROVASCULAR DISEASE Old stroke with residual mild left upper extremity weakness. Continue aspirin LEFT HIP FRACTURE / REPAIR Follow-up with Orthopedics in [place]. Continue PT VTE PROPHYLAXIS Moderate to high risk. SQ enoxaparin. DISPOSITION Will discharge to [facility] for inpatient rehabilitation. Consultants: Urology . Current Inpatient Medications: Current Inpatient Medications Medications (Trade) Dose Ordered Sig/Olinda Route Start Time Stop Time Status Last Admin Dose Admin Enoxaparin Sodium (Lovenox Inj) 40 mg Q24H SQ 03/14/17 22:00 04/13/17 21:59 03/17/17 21:46 40 MG Acetaminophen (Tylenol Tab) 650 mg Q4H PRN PO 03/14/17 21:30 04/13/17 21:29 03/17/17 08:34 650 MG Ceftriaxone Sodium 1 gm/ Dextrose 50 ml @ 100 mls/hr Q24H IV 03/15/17 18:00 03/18/17 18:29 03/17/17 18:04 100 MLS/HR Aspirin (Ecotrin Tab) 81 mg QAM PO 03/15/17 09:00 04/14/17 08:59 03/17/17 08:33 81 MG Lisinopril (Zestril Tab) 20 mg QAM PO 03/15/17 09:00 04/14/17 08:59 03/17/17 08:34 20 MG Lovastatin (Mevacor Tab) 20 mg QPM PO 03/15/17 21:00 04/14/17 20:59 03/17/17 20:54 20 MG Ondansetron HCl (Zofran Inj) 4 mg Q6H PRN IV 03/14/17 21:30 04/13/17 21:29 03/15/17 16:56 4 MG Tramadol HCl (Ultram Tab) 25 mg Q6H PRN PO 03/14/17 21:30 04/13/17 21:29 03/16/17 22:19 25 MG Hydromorphone HCl (Dilaudid Inj) 0.5 mg Q3H PRN IV 03/14/17 21:30 03/28/17 21:29 03/15/17 04:57 0.5 MG Tamsulosin HCl (Flomax Cap) 0.4 mg HS PO 03/15/17 21:00 04/14/17 20:59 03/17/17 20:54 0.4 MG
[2017-03-18] MEDS ORDERED: ULT50X PO (11:09)
[2017-03-18] MEDS ORDERED: FLM4 PO (11:09)
--- NOTE | 2017-03-18 11:27 | Discharge Instructions ---
Discharge Instructions Date of Service Mar 18, 2017. Admission Reason for Admission: Fever Discharge Discharge Diagnosis / Problem: FEVER, URINARY RETENTION, LEFT HIP FRACTURE / REPAIR Discharge Goals Goal(s): Decrease discomfort, Improve function, Improve disease control Activity Recommendations Activity Limitations: resume your previous activity ( TOLERATED) . Instructions / Follow-Up Instructions / Follow-Up Please schedule follow appointment with your PCP once discharge from rehab Fall precaution Continue PT/OT OK to discharge to [facility] with Burciaga Keep Burciaga for several days, can start voiding trial tomorrow as per urology Continue Lovenox 40mg subq for DVT prophylaxis while in Rehab Current Hospital Diet Patient's current hospital diet: AHA Diet (Heart Healthy) Discharge Diet Recommended Diet: AHA Diet (Heart Healthy) Pending Studies Studies pending at discharge: no Medical Emergencies . Who to Call and When: Medical Emergencies: If at any time you feel your situation is an emergency, please call 911 immediately. . Non-Emergent Contact Non-Emergency issues call your: Primary Care Provider Call Non-Emergent contact if: you have a fever, your pain is not controlled, your pain is worsening, you have any medication questions . . "Provider Documentation" section prepared by Mandy Henson. . VTE Core Measure Inpt VTE Proph given/why not?: Enoxaparin (Lovenox) [place] Drug Monitoring Program Search Results: patient reviewed within database
[2017-03-18 13:42] VITALS: BP 140/80; PULSE 64; TEMP 36.6; O2SAT 95
[2017-03-18 16:00] VITALS: BP 134/82; PULSE 70; TEMP 36.6; O2SAT 94
--- NOTE | 2017-03-19 23:54 | Discharge Summary ---
Discharge Summary Date of Service Mar 19, 2017. Discharge Summary Admission Date: Mar 14, 2017 at 20:54 Discharge Date: Mar 18, 2017 Discharge Disposition: Rehab Principal Diagnosis: FEVER Secondary Diagnoses/Problems: FEVER URINARY RETENTION LEFT HIP FRACTURE / REPAIR HTN Procedures: CHEST 2 VIEWS ROUTINE CLINICAL HISTORY: fever, cough fever COMPARISON STUDY: 03/14/2017 FINDINGS: Mild emphysematous change. Mild stable cardiomegaly. Lungs are considered clear. Trace pleural fluid left base laterally. IMPRESSION: Trace pleural fluid left base. Mild to moderate emphysematous change. Electronically signed by: Brian Hernandez M.D. 03/16/2017 8:46 PM Dictated Date/Time: 03/16/2017 8:45 PM SINUSES MIN 3 VIEWS ROUTINE CLINICAL HISTORY: fever, cough COMPARISON STUDY: None FINDINGS: All major sinuses are considered clear. There are no air-fluid levels. Osseous structures appear intact. IMPRESSION: All major sinuses are clear Electronically signed by: Brian Hernandez M.D. 03/16/2017 9:06 PM Dictated Date/Time: 03/16/2017 9:05 PM Consultations: Urology . Medication Reconciliation New Medications: Tamsulosin HCl (Tamsulosin HCl) 0.4 Mg Cap 0.4 MG PO HS for 30 Days, CAP Tramadol HCl (Tramadol HCl) 50 Mg Tab 1 TAB PO Q8 PRN for Pain for 3 Days, #9 TAB Continued Medications: Acetaminophen (Tylenol) 500 Mg Tab 500 MG PO QAM Aspirin (Aspirin Ec) 81 Mg Tab 81 MG PO QAM Hydrochlorothiazide (Hydrochlorothiazide) 25 Mg Tab 2 MG PO DAILY Ibuprofen (Advil) 200 Mg Tab 200 MG PO QPM Lisinopril (Lisinopril) 20 Mg Tab 20 MG PO QAM Lovastatin (Mevacor) 20 Mg Tab 20 MG PO QPM Melatonin (Melatonin) 3 Mg Tab 3 MG PO HS Admission Information HPI (per Admitting provider): CHIEF COMPLAINT: Fever. HISTORY OF PRESENT ILLNESS: History obtained from patient and records. Medical history significant for CVA, VT as per records (px unaware of dx), hypertension, hyperlipidemia, BPH, ongoing tobacco abuse (chewing). Patient confined at [facility] from March 11 till this AM for L femoral fracture after a fall while looking for worms. PX underwent surgery. No unusual pain. Postop urinary retention required intermittent straight catheterization, postop low grade fevers as per records. Cultures negative, antibiotics later stopped. Px discharged today to [facility]. At [facility], noted to be febrile and urinary retention noted. No cp, no sob, no cough sx, No abd pain/diarrhea. No headaches. No unusual L hip pain. Physical Exam (per Admitting): VITAL SIGNS: Blood pressure was noted to be 106/98, pulse rate 92, RR 20, temp 39.1, sats 98 on room air. GENERAL: Noted to be slightly anxious, uncomfortable, no respiratory distress. SKIN: Pallor. HEENT: Pale palpebral conjunctivae. Dry mucosa. NECK: No JVD. supple CHEST: Clear to auscultation. HEART: Regular rate and rhythm. ABDOMEN: Soft. EXTREMITIES: No edema. no tenderness NEUROLOGIC: No gross focality. Hospital Course FEVER Etiology Unknown No infiltrates on admission chest x-ray. No apparent wound infection. Blood cx and urine cx negative Received rocephin for 4 days has been afebrile for about 3 days Stable URINARY RETENTION Postoperative urinary retention.. Urology on board Recommended to keep Burciaga catheter for a few more days followed by voiding trial on Urine cx negative continue Flomax CORONARY ARTERY DISEASE Asymptomatic Continue aspirin. HYPERTENSION Continue hydrochlorothiazide, lisinopril, losartan. BP stable CEREBROVASCULAR DISEASE Old stroke with residual mild left upper extremity weakness. Continue aspirin LEFT HIP FRACTURE / REPAIR Follow-up with Orthopedics in [place]. Continue PT VTE PROPHYLAXIS Moderate to high risk. SQ enoxaparin. DISPOSITION Will discharge to [facility] today for inpatient rehabilitation. Total time spent on discharge = 35 minutes This includes examination of the patient, discharge planning, medication reconciliation, and communication with other providers. Discharge Instructions Discharge Instructions Date of Service Mar 18, 2017. Admission Reason for Admission: Fever Discharge Discharge Diagnosis / Problem: FEVER, URINARY RETENTION, LEFT HIP FRACTURE / REPAIR Discharge Goals Goal(s): Decrease discomfort, Improve function, Improve disease control Activity Recommendations Activity Limitations: resume your previous activity ( TOLERATED) . Instructions / Follow-Up Instructions / Follow-Up Please schedule follow appointment with your PCP once discharge from rehab Fall precaution Continue PT/OT OK to discharge to [facility] with Burciaga Keep Burciaga for several days, can start voiding trial tomorrow as per urology Continue Lovenox 40mg subq for DVT prophylaxis while in Rehab Current Hospital Diet Patient's current hospital diet: AHA Diet (Heart Healthy) Discharge Diet Recommended Diet: AHA Diet (Heart Healthy) Pending Studies Studies pending at discharge: no Medical Emergencies . Who to Call and When: Medical Emergencies: If at any time you feel your situation is an emergency, please call 911 immediately. . Non-Emergent Contact Non-Emergency issues call your: Primary Care Provider Call Non-Emergent contact if: you have a fever, your pain is not controlled, your pain is worsening, you have any medication questions . . "Provider Documentation" section prepared by Mandy Henson. . VTE Core Measure Inpt VTE Proph given/why not?: Enoxaparin (Lovenox) [place] Drug Monitoring Program Search Results: patient reviewed within database Additional Copies To [facility] [place]
== END 2017-03-18 17:02 | DRG 699 ==
LOC: C.EDC 15:56 → C.MSN 20:54 → ENRESERV 21:32
PROVIDERS: ADMIT Hospitalist; ATTEND Internal Medicine
PROC: 0T9B70Z Drainage of Bladder with Drainage Device, Via Natural or Artificial Opening (ICD-10-PCS; principal; 2017-03-14)
DX: N99.89 Other postprocedural complications and disorders of genitourinary system (principal); I69.354 Hemiplegia and hemiparesis following cerebral infarction affecting left non-dominant side; R33.8 Other retention of urine; R50.9 Fever, unspecified; I25.2 Old myocardial infarction; I11.9 Hypertensive heart disease without heart failure; N40.0 Benign prostatic hyperplasia without lower urinary tract symptoms; E78.5 Hyperlipidemia, unspecified; I25.10 Atherosclerotic heart disease of native coronary artery without angina pectoris; F17.220 Nicotine dependence, chewing tobacco, uncomplicated; Z51.81 Encounter for therapeutic drug level monitoring; Z79.899 Other long term (current) drug therapy; Z79.82 Long term (current) use of aspirin; Z91.81 History of falling; Z87.81 Personal history of (healed) traumatic fracture; Z98.890 Other specified postprocedural states; Y83.8 Other surgical procedures as the cause of abnormal reaction of the patient, or of later complication, without mention of misadventure at the time of the procedure